=== PATIENT | male | born 1995 | race Caucasian/White ===

== ENCOUNTER → 2018-01-12 08:52 | Outpatient (CLI) | payer BC, SELFPAY ==
[2018-01-12 10:32] LABS: T4 Free Direct 1.19 ng/dL (0.76-1.46); Thyroid Stim Hormone (TSH) 1.47 uIU/mL (0.358-3.74)
== END ==
PROVIDERS: Family Provider Pediatrics; PCP Pediatrics; Visit Provider Pediatrics
DX: E03.8 Other specified hypothyroidism (principal)
CPT/HCPCS: 36415; 84439; 84443